=== PATIENT | female | born 1955 | race Caucasian/White ===

== ENCOUNTER 2022-03-01 06:25 | Emergency (ER) | payer OTHER, SELFPAY ==
[2022-03-01] MEDS ORDERED: MORPHINE 4 MG/ML SYR ONE (07:09)
[2022-03-01] MEDS ORDERED: ONDANSETRON 4 MG/2 ML VIAL ONE ×2 (07:10→08:00)
[2022-03-01] MEDS ORDERED: propofoL 200 MG/20 ML VIAL IV ONE (07:48)
--- NOTE | 2022-03-01 08:40 | RAD REPORT ---
EXAM DESCRIPTION: RAD - Wrist Right 2 View - 03/01/2022 7:56 am CLINICAL HISTORY: Right wrist pain status post injury FINDINGS: Markedly displaced comminuted fractures distal radius and ulna with avulsion of the fractu re fragments. Overriding of fracture fragments are present as well as angulation present at the fract ure site. No gross dislocation seen
--- NOTE | 2022-03-01 08:45 | RAD REPORT ---
EXAM DESCRIPTION: RAD - Wrist Right 2 View - 03/01/2022 8:38 am CLINICAL HISTORY: Radial fracture FINDINGS: A splint immobilizes fractures of the distal radius and ulna in much better alignment. No gross dislocation
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
[2022-03-01 09:46] VITALS: TEMP 98.8
[2022-03-01 09:57] VITALS: BP 121/92; O2SAT 99
== END 2022-03-01 09:40 | disposition home or self-care (01) ==
LOC: ER 06:25
PROC: 0PSHXZZ Reposition Right Radius, External Approach (ICD-10-PCS; principal; 2022-03-01)
PROC: 0PSKXZZ Reposition Right Ulna, External Approach (ICD-10-PCS; 2022-03-01)
DX: S52.351A Displaced comminuted fracture of shaft of radius, right arm, initial encounter for closed fracture (principal); S52.251A Displaced comminuted fracture of shaft of ulna, right arm, initial encounter for closed fracture; S62.324A Displaced fracture of shaft of fourth metacarpal bone, right hand, initial encounter for closed fracture; V47.5XXA Car driver injured in collision with fixed or stationary object in traffic accident, initial encounter; Z88.0 Allergy status to penicillin; E11.9 Type 2 diabetes mellitus without complications; I10 Essential (primary) hypertension
CPT/HCPCS: 73100 ×2; 96375; 96374; 99284; 25605; J2704; J2405 ×2

== ENCOUNTER → 2023-12-24 | Emergency (ER) | payer OTHER, SELFPAY ==
--- OUTSIDE RECORDS SUMMARY | 2023-12-24 18:03 | XMS REPORT | Continuity of Care Document ---
Author Name Unknown Address [address] [facility] [address] [place] [address] [facility] thconnect Address [address] [facility] [address] [place] [address] Care Team Providers Care Director Of Corporate Marketing Name Role Phone Shanique Campbell Primary Care Physician [phone] TRACE ZELAYA Attending Clinician Unavailable Doctor Unassigned, [place] Attending Clinician U REYNA Hooper Attending Clinician Unavailable Reyna Macias PA-C Attending Clinician [phone] Unknown, Attending Attending Clinician Unavailab Trace Benton MD Attending Clinician [phone] DESTINY AGUILAR Attending Clinician UnavailKatalina Nieves OT Attending Clinician Unavail able Destiny Aguilar MD Attending Clinician [phone] Joanne Hollingsworth MD Attending Clinician [phone] Only, Adc Test Attending Clinician Unavailable [facility] Attending Clinician Unavailable Phil Friedman MD Attending Clinician [phone] PHIL FRIEDMAN Attending Clinician Unavailable Abbi CANTU, Yaneth Lopez Attending Clinician [phone] VISHNU QIU Attending Clinician Unavailable David DUKES, Stacie Attending Clinician [phone] Kermit RODRIGUEZ, Vishnu Attending Clinician [phone] RAFA DIAZ Attending Clinician Unav ailable Hong RODRIGUEZ, Danial Attending Clinician [phone] DANIAL SIMPSON Attending Clinician Unavailabl e Amadou RODRIGUEZ, Rafa Reyes Attending Clinician + PAXTON DONIS Attending Clinician Unavailable Jewels RODRIGUEZ, Paxton Sommer Attending Clinician [phone] TRACE ZELAYA Admitting Clinician Unavailable Trace Zelaya MD Admitting Clinician [phone] VISHNU QIU Admitting Clinician Unavailable Kermit RODRIGUEZ, Vishnu Admitting Clinician [phone] PAXTON DONIS Admitting Clinician Unavailable Payers Payer Name Policy Type Policy Number Effective Date Expirati on Date Source [facility] [id number] 2022 00:00:00 Problems Condition Name Condition Details Condition Category Status Onset Date Resolution Date Last Treatment Date Treating Clinician Comments Source DKA, type 2, not at goal DKA, type 2, not at goal Disease Active 03-26 00:00: 00 [facility] Obesity (BMI 30-39.9) Obesity (BMI 30-39.9) Disease Active 03-25 00:00: 00 [facility] Hyperglyce guerrero due to diabetes mellitus Hyperglyce guerrero due to diabetes mellitus Disease Active 03-25 00:00: 00 [facility] Closed fracture of distal ends of right radius and ulna, initial encounter Closed fracture of distal ends of right radius and ulna, initial encounter Disease Active 03-20 00:00: 00 Overview: Formattin g of this note might be different from the original. Added automatic ally from request for surgery [id number] [facility] Chest pain Chest pain Disease Active 07-20 00:00: 00 Overview: Formattin g of this note might be different from the original. ICD10 Diagnosis Term Dog Hair Clipper Utility [facility] Allergies, Adverse Reactions, Alerts Allergy Name Allergy Type Status Severity Reaction(s) Onset Date Inactive Date Treating Clinician Comments Source Penicill ins Propensi ty to adverse reaction s Active Rash 07-20 00:00: 00 [facility] PENICILL INS Drug Class Active Rash 07-20 00:00: 00 [facility] Social History Social Habit Start Date Stop Date Quantity Comments [facility] 2023-05-30 00:00:00 2023-05-30 00:00:00 Ex-drinker (finding) [facility] Exposure to SARS-CoV-2 (event) 2022-10-27 00:00:00 2022-11-06 09:52:00 Not sure [facility] Tobacco use and exposure 2022-11-06 00:00:00 2022-11-06 00:00:00 Smokeless tobacco non-user [facility] History of Social function 2022-07-02 00:00:00 2022-07-02 00:00:00 [facility] Sex Ass[birth year] At 1955 00:00:00 1955 00:00:00 [facility] Smoking Status Start Date Stop Date Source Never smoked tobacco [facility] Medications Ordered Medication Name Filled Medication Name Start Date Stop Date Current Medication? Ordering Clinician Indication Dosage Frequency Signature (SIG) Comments Components Source albuterol (PROVENTIL) 2.5 mg /3 mL (0.083 %) nebulizer solution 2.5 mg 05-31 01:00: 00 05-31 00:13 :00 No [id number] 2.5mg [facility] albuterol (PROVENTIL) 2.5 mg /3 mL (0.083 %) nebulizer solution 2.5 mg 05-31 01:00: 00 05-31 00:13 :00 No [id number] 2.5mg 2.5 mg, Inhalation , ONCE, 1 dose, On Fri05/30/23 at 1999, Routine [facility] levothyroxi ne sodium (LEVOTHROID ORAL) 05-30 19:04: 42 Yes Take by mouth. [facility] semaglutide (RYBELSUS ORAL) 05-30 19:04: 42 Yes Take by mouth. [facility] levothyroxi ne sodium (LEVOTHROID ORAL) 05-30 19:04: 42 Yes Take by mouth. [facility] semaglutide (RYBELSUS ORAL) 05-30 19:04: 42 Yes Take by mouth. [facility] predniSONE 20 mg tablet 05-30 00:00: 00 Yes [id number] 20mg Take 1 tablet by mouth in the morning. [facility] cetirizine 10 mg tablet 05-30 00:00: 00 Yes [id number] 10mg Take 1 tablet by mouth in the morning. [facility] fluticasone propionate 50 mcg/actuati on nasal spray 05-30 00:00: 00 Yes [id number] 2{spray } Use 2 Sprays in each nostril in the morning. [facility] bromphenira mine-pseudo ephedrine-D M (BROMFED DM) 2-30-10 mg/5 mL syrup 05-30 00:00: 00 Yes [id number] 5mL Take 5 mL by mouth 3 (three) times daily as needed for Cough or Cold symptoms. [facility] albuterol 90 mcg/actuati on inhaler 05-30 00:00: 00 Yes [id number] 2{puff} Inhale 2 Puffs every 6 (six) hours as needed for Chest tightness or Shortness of Breath. [facility] predniSONE 20 mg tablet 05-30 00:00: 00 Yes [id number] 20mg Take 1 tablet by mouth in the morning. [facility] cetirizine 10 mg tablet 05-30 00:00: 00 Yes [id number] 10mg Take 1 tablet by mouth in the morning. [facility] fluticasone propionate 50 mcg/actuati on nasal spray 05-30 00:00: 00 Yes [id number] 2{spray } Use 2 Sprays in each nostril in the morning. [facility] bromphenira mine-pseudo ephedrine-D M (BROMFED DM) 230-10 mg/5 mL syrup 05-30 00:00: 00 Yes [id number] 5mL Take 5 mL by mouth 3 (three) times daily as needed for Cough or Cold symptoms. [facility] albuterol 90 mcg/actuati on inhaler 05-30 00:00: 00 Yes [id number] 2{puff} Inhale 2 Puffs every 6 (six) hours as needed for Chest tightness or Shortness of Breath. [facility] levothyroxi ne sodium (LEVOTHROID ORAL) 2021-12 10:23: 55 Yes Take by mouth. [facility] semaglutide (RYBELSUS ORAL) 2021-12 10:23: 55 Yes Take by mouth. [facility] levothyroxi ne sodium (LEVOTHROID ORAL) 2021-12 10:23: 55 Yes Take by mouth. [facility] semaglutide (RYBELSUS ORAL) 2021-12 10:23: 55 Yes Take by mouth. [facility] levothyroxi ne sodium (LEVOTHROID ORAL) 2021-12 10:23: 55 Yes Take by mouth. [facility] semaglutide (RYBELSUS ORAL) 2021-12 10:23: 55 Yes Take by mouth. [facility] levothyroxi ne sodium (LEVOTHROID ORAL) 2021-12 10:23: 55 Yes Take by mouth. [facility] semaglutide (RYBELSUS ORAL) 2021-12 10:23: 55 Yes Take by mouth. [facility] levothyroxi ne sodium (LEVOTHROID ORAL) 2021-12 10:23: 55 Yes Take by mouth. [facility] semaglutide (RYBELSUS ORAL) 2021-12 10:23: 55 Yes Take by mouth. [facility] levothyroxi ne sodium (LEVOTHROID ORAL) 2021-12 10:23: 55 Yes Take by mouth. [facility] semaglutide (RYBELSUS ORAL) 2021-12 10:23: 55 Yes Take by mouth. [facility] Nitrofurant oin&Nit. Macrocryst 100 mg capsule 2021-12 00:00: 00 Yes 100mg Take 100 mg by mouth in the morning. [facility] Nitrofurant oin&Nit. Macrocryst 100 mg capsule 2021-12 00:00: 00 Yes 100mg Take 100 mg by mouth in the morning. [facility] Nitrofurant oin&Nit. Macrocryst 100 mg capsule 2021-12 00:00: 00 Yes 100mg Take 100 mg by mouth in the morning. [facility] Nitrofurant oin&Nit. Macrocryst 100 mg capsule 2021-12 00:00: 00 Yes 100mg Take 100 mg by mouth in the morning. [facility] Nitrofurant oin&Nit. Macrocryst 100 mg capsule 2021-12 00:00: 00 Yes 100mg Take 100 mg by mouth in the morning. [facility] Nitrofurant oin&Nit. Macrocryst 100 mg capsule 2021-12 00:00: 00 Yes 100mg Take 1 capsule by mouth in the morning. [facility] Nitrofurant oin&Nit. Macrocryst 100 mg capsule 2021-12 00:00: 00 Yes 100mg Take 1 capsule by mouth in the morning. [facility] levothyroxi ne sodium (LEVOTHROID ORAL) 07-17 13:44: 11 Yes Take by mouth. [facility] empaglifloz in (JARDIANCE) 25 mg Tab 07-17 13:44: 11 Yes Take by mouth. [facility] dapaglifloz in (FARXIGA) 10 mg tablet 07-17 13:44: 11 Yes 10mg Take 10 mg by mouth daily. [facility] levothyroxi ne sodium (LEVOTHROID ORAL) 07-17 13:44: 11 Yes Take by mouth. [facility] empaglifloz in (JARDIANCE) 25 mg Tab 07-17 13:44: 11 Yes Take by mouth. [facility] dapaglifloz in (FARXIGA) 10 mg tablet 07-17 13:44: 11 Yes 10mg Take 10 mg by mouth daily. [facility] levothyroxi ne sodium (LEVOTHROID ORAL) 07-17 13:44: 11 Yes Take by mouth. [facility] empaglifloz in (JARDIANCE) 25 mg Tab 07-17 13:44: 11 Yes Take by mouth. [facility] dapaglifloz in (FARXIGA) 10 mg tablet 07-17 13:44: 11 Yes 10mg Take 10 mg by mouth daily. [facility] levothyroxi ne sodium (LEVOTHROID ORAL) 07-17 13:44: 11 Yes Take by mouth. [facility] empaglifloz in (JARDIANCE) 25 mg Tab 07-17 13:44: 11 Yes Take by mouth. [facility] dapaglifloz in (FARXIGA) 10 mg tablet 07-17 13:44: 11 Yes 10mg Take 10 mg by mouth daily. [facility] levothyroxi ne sodium (LEVOTHROID ORAL) 0 07-17 13:44: 11 Yes Take by mouth. [facility] empaglifloz in (JARDIANCE) 25 mg Tab 07-17 13:44: 11 Yes Take by mouth. [facility] dapaglifloz in (FARXIGA) 10 mg tablet 07-17 13:44: 11 Yes 10mg Take 10 mg by mouth daily. [facility] levothyroxi ne sodium (LEVOTHROID ORAL) 0 07-17 13:44: 11 Yes Take by mouth. [facility] (JARDIANCE) 25 mg Tab 0 07-17 13:44: 11 Yes Take by mouth. [facility] dapaglifloz in (FARXIGA) 10 mg tablet 2021-0 07-17 13:44: 11 Yes 10mg Take 10 mg by mouth daily. [facility] levothyroxi ne sodium (LEVOTHROID ORAL) 0 07-17 13:44: 11 Yes Take by mouth. [facility] empaglifloz in (JARDIANCE) 25 mg Tab 0 07-17 13:44: 11 Yes Take by mouth. [facility] dapaglifloz in (FARXIGA) 10 mg tablet 07-17 13:44: 11 Yes 10mg Take 10 mg by mouth daily. [facility] levothyroxi ne sodium (LEVOTHROID ORAL) 07-17 13:44: 11 Yes Take by mouth. [facility] empaglifloz in (JARDIANCE) 25 mg Tab 07-17 13:44: 11 Yes Take by mouth. [facility] dapaglifloz in (FARXIGA) 10 mg tablet 07-17 13:44: 11 Yes 10mg Take 10 mg by mouth daily. [facility] levothyroxi ne sodium (LEVOTHROID ORAL) 0 07-17 13:44: 11 Yes Take by mouth. [facility] empaglifloz in (JARDIANCE) 25 mg Tab 0 07-17 13:44: 11 Yes Take by mouth. [facility] dapaglifloz in (FARXIGA) 10 mg tablet 07-17 13:44: 11 Yes 10mg Take 10 mg by mouth daily. [facility] levothyroxi ne sodium (LEVOTHROID ORAL) 0 07-17 13:44: 11 Yes Take by mouth. [facility] empaglifloz in (JARDIANCE) 25 mg Tab 07-17 13:44: 11 Yes Take by mouth. [facility] dapaglifloz in (FARXIGA) 10 mg tablet 07-17 13:44: 11 Yes 10mg Take 10 mg by mouth daily. [facility] levothyroxi ne sodium (LEVOTHROID ORAL) 07-17 13:44: 11 Yes Take by mouth. [facility] empaglifloz in (JARDIANCE) 25 mg Tab 07-17 13:44: 11 Yes Take by mouth. [facility] dapaglifloz in (FARXIGA) 10 mg tablet 07-17 13:44: 11 Yes 10mg Take 10 mg by mouth daily. [facility] levothyroxi ne sodium (LEVOTHROID ORAL) 07-17 13:44: 11 Yes Take by mouth. [facility] empaglifloz in (JARDIANCE) 25 mg Tab 07-17 13:44: 11 Yes Take by mouth. [facility] dapaglifloz in (FARXIGA) 10 mg tablet 07-17 13:44: 11 Yes 10mg Take 10 mg by mouth daily. [facility] levothyroxi ne sodium (LEVOTHROID ORAL) 07-17 13:44: 11 Yes Take by mouth. [facility] empaglifloz in (JARDIANCE) 25 mg Tab 07-17 13:44: 11 Yes Take by mouth. [facility] dapaglifloz in (FARXIGA) 10 mg tablet 0 07-17 13:44: 11 Yes 10mg Take 10 mg by mouth daily. [facility] levothyroxi ne sodium (LEVOTHROID ORAL) 07-17 13:44: 11 Yes Take by mouth. [facility] empaglifloz in (JARDIANCE) 25 mg Tab 0 07-17 13:44: 11 Yes Take by mouth. [facility] dapaglifloz in (FARXIGA) 10 mg tablet 2022-0 8-17 13:44: 11 Yes 10mg Take 10 mg by mouth daily. [facility] empaglifloz in (JARDIANCE) 25 mg Tab 2022-0 8-17 13:44: 11 Yes Take by mouth. [facility] dapaglifloz in (FARXIGA) 10 mg tablet 2022-0 8-17 13:44: 11 Yes 10mg Take 10 mg by mouth daily. [facility] empaglifloz in (JARDIANCE) 25 mg Tab 2022-0 8-17 13:44: 11 Yes Take by mouth. [facility] dapaglifloz in (FARXIGA) 10 mg tablet 2022-0 8-17 13:44: 11 Yes 10mg Take 10 mg by mouth daily. [facility] empaglifloz in (JARDIANCE) 25 mg Tab 2022-0 8-17 13:44: 11 Yes Take by mouth. [facility] dapaglifloz in (FARXIGA) 10 mg tablet 2022-0 8-17 13:44: 11 Yes 10mg Take 10 mg by mouth daily. [facility] empaglifloz in (JARDIANCE) 25 mg Tab 2022-0 8-17 13:44: 11 Yes Take by mouth. [facility] dapaglifloz in (FARXIGA) 10 mg tablet 2022-0 8-17 13:44: 11 Yes 10mg Take 10 mg by mouth daily. [facility] empaglifloz in (JARDIANCE) 25 mg Tab 2022-0 8-17 13:44: 11 Yes Take by mouth. [facility] it[facility] dapaglifloz in (FARXIGA) 10 mg tablet 2022-0 8-17 13:44: 11 Yes 10mg Take 10 mg by mouth daily. [facility] empaglifloz in (JARDIANCE) 25 mg Tab 2022-0 8-17 13:44: 11 Yes Take by mouth. [facility] dapaglifloz in (FARXIGA) 10 mg tablet 2022-0 8-17 13:44: 11 Yes 10mg Take 10 mg by mouth daily. [facility] empaglifloz in (JARDIANCE) 25 mg Tab 07-17 13:44: 11 Yes Take by mouth. [facility] dapaglifloz in (FARXIGA) 10 mg tablet 07-17 13:44: 11 Yes 10mg Take 10 mg by mouth daily. [facility] empaglifloz in (JARDIANCE) 25 mg Tab 07-17 13:44: 11 Yes Take by mouth. [facility] dapaglifloz in (FARXIGA) 10 mg tablet 07-17 13:44: 11 Yes 10mg Take 10 mg by mouth daily. [facility] metFORMIN (GLUCOPHAGE ) 1,000 mg tablet 07-02 10:10: 22 Yes 1000mg Take 1,000 mg by mouth 2 (two) times daily with meals. [facility] semaglutide (RYBELSUS ORAL) 07-02 10:10: 22 Yes Take by mouth. [facility] metFORMIN (GLUCOPHAGE ) 1,000 mg tablet 07-02 10:10: 22 Yes 1000mg Take 1,000 mg by mouth 2 (two) times daily with meals. [facility] semaglutide (RYBELSUS ORAL) 07-02 10:10: 22 Yes Take by mouth. [facility] metFORMIN (GLUCOPHAGE ) 1,000 mg tablet 07-02 10:10: 22 Yes 1000mg Take 1,000 mg by mouth 2 (two) times daily with meals. [facility] semaglutide (RYBELSUS ORAL) 07-02 10:10: 22 Yes Take by mouth. [facility] metFORMIN (GLUCOPHAGE ) 1,000 mg tablet 07-02 10:10: 22 Yes 1000mg Take 1,000 mg by mouth 2 (two) times daily with meals. [facility] semaglutide (RYBELSUS ORAL) 07-02 10:10: 22 Yes Take by mouth. [facility] metFORMIN (GLUCOPHAGE ) 1,000 mg tablet 07-02 10:10: 22 Yes 1000mg Take 1,000 mg by mouth 2 (two) times daily with meals. [facility] semaglutide (RYBELSUS ORAL) 07-02 10:10: 22 Yes Take by mouth. [facility] metFORMIN (GLUCOPHAGE ) 1,000 mg tablet 07-02 10:10: 22 Yes 1000mg Take 1,000 mg by mouth 2 (two) times daily with meals. [facility] semaglutide (RYBELSUS ORAL) 07-02 10:10: 22 Yes Take by mouth. [facility] metFORMIN (GLUCOPHAGE ) 1,000 mg tablet 07-02 10:10: 22 Yes 1000mg Take 1,000 mg by mouth 2 (two) times daily with meals. [facility] semaglutide (RYBELSUS ORAL) 07-02 10:10: 22 Yes Take by mouth. [facility] metFORMIN (GLUCOPHAGE ) 1,000 mg tablet 07-02 10:10: 22 Yes 1000mg Take 1,000 mg by mouth 2 (two) times daily with meals. [facility] semaglutide (RYBELSUS ORAL) 07-02 10:10: 22 Yes Take by mouth. [facility] metFORMIN (GLUCOPHAGE ) 1,000 mg tablet 07-02 10:10: 22 Yes 1000mg Take 1,000 mg by mouth 2 (two) times daily with meals. [facility] semaglutide (RYBELSUS ORAL) 07-02 10:10: 22 Yes Take by mouth. [facility] metFORMIN (GLUCOPHAGE ) 1,000 mg tablet 07-02 10:10: 22 Yes 1000mg Take 1,000 mg by mouth 2 (two) times daily with meals. [facility] semaglutide (RYBELSUS ORAL) 07-02 10:10: 22 Yes Take by mouth. [facility] metFORMIN (GLUCOPHAGE ) 1,000 mg tablet 07-02 10:10: 22 Yes 1000mg Take 1,000 mg by mouth 2 (two) times daily with meals. [facility] semaglutide (RYBELSUS ORAL) 07-02 10:10: 22 Yes Take by mouth. [facility] metFORMIN (GLUCOPHAGE ) 1,000 mg tablet 07-02 10:10: 22 Yes 1000mg Take 1,000 mg by mouth 2 (two) times daily with meals. [facility] semaglutide (RYBELSUS ORAL) 07-02 10:10: 22 Yes Take by mouth. [facility] metFORMIN (GLUCOPHAGE ) 1,000 mg tablet 0 07-02 10:10: 22 Yes 1000mg Take 1,000 mg by mouth 2 (two) times daily with meals. [facility] semaglutide (RYBELSUS ORAL) 07-02 10:10: 22 Yes Take by mouth. [facility] metFORMIN (GLUCOPHAGE ) 1,000 mg tablet 07-02 10:10: 22 Yes 1000mg Take 1,000 mg by mouth 2 (two) times daily with meals. [facility] semaglutide (RYBELSUS ORAL) 07-02 10:10: 22 Yes Take by mouth. [facility] metFORMIN (GLUCOPHAGE ) 1,000 mg tablet 07-02 10:10: 22 Yes 1000mg Take 1,000 mg by mouth 2 (two) times daily with meals. [facility] metFORMIN (GLUCOPHAGE ) 1,000 mg tablet 2021-0 07-02 10:10: 22 Yes 1000mg Take 1,000 mg by mouth 2 (two) times daily with meals. [facility] metFORMIN (GLUCOPHAGE ) 1,000 mg tablet 2021-0 07-02 10:10: 22 Yes 1000mg Take 1,000 mg by mouth 2 (two) times daily with meals. [facility] metFORMIN (GLUCOPHAGE ) 1,000 mg tablet 2021-0 07-02 10:10: 22 Yes 1000mg Take 1,000 mg by mouth 2 (two) times daily with meals. [facility] metFORMIN (GLUCOPHAGE ) 1,000 mg tablet 2021-0 07-02 10:10: 22 Yes 1000mg Take 1,000 mg by mouth 2 (two) times daily with meals. [facility] metFORMIN (GLUCOPHAGE ) 1,000 mg tablet 0 07-02 10:10: 22 Yes 1000mg Take 1,000 mg by mouth 2 (two) times daily with meals. [facility] metFORMIN (GLUCOPHAGE ) 1,000 mg tablet 2021-0 07-02 10:10: 22 Yes 1000mg Take 1,000 mg by mouth 2 (two) times daily with meals. [facility] metFORMIN (GLUCOPHAGE ) 1,000 mg tablet 2021-0 07-02 10:10: 22 Yes 1000mg Take 1,000 mg by mouth 2 (two) times daily with meals. [facility] metFORMIN (GLUCOPHAGE ) 1,000 mg tablet 2021-0 07-02 10:10: 22 Yes 1000mg Take 1,000 mg by mouth 2 (two) times daily with meals. [facility] ibuprofen 800 mg tablet 0 07-02 00:00: 00 Yes [id number] 800mg Take 1 tablet by mouth every 6 (six) hours as needed for Pain (scale 1-3) or Pain (scale 4-6). [facility] acetaminoph en (TYLENOL EXTRA STRENGTH) 500 mg tablet 07-02 00:00: 00 Yes [id number] 500mg Take 1 tablet by mouth every 6 (six) hours as needed for Pain. [facility] ibuprofen 800 mg tablet 2021-0 07-02 00:00: 00 Yes [id number] 800mg Take 1 tablet by mouth every 6 (six) hours as needed for Pain (scale 1-3) or Pain (scale 4-6). [facility] acetaminoph en (TYLENOL EXTRA STRENGTH) 500 mg tablet 2021-0 07-02 00:00: 00 Yes [id number] 500mg Take 1 tablet by mouth every 6 (six) hours as needed for Pain. [facility] ibuprofen 800 mg tablet 2021-0 8- 00:00: 00 Yes [id number] 800mg Take 1 tablet by mouth every 6 (six) hours as needed for Pain (scale 1-3) or Pain (scale 4-6). [facility] acetaminoph en (TYLENOL EXTRA STRENGTH) 500 mg tablet 2021-0 8- 00:00: 00 Yes [id number] 500mg Take 1 tablet by mouth every 6 (six) hours as needed for Pain. [facility] ibuprofen 800 mg tablet 2021-0 8- 00:00: 00 Yes [id number] 800mg Take 1 tablet by mouth every 6 (six) hours as needed for Pain (scale 1-3) or Pain (scale 4-6). [facility] acetaminoph en (TYLENOL EXTRA STRENGTH) 500 mg tablet 2021-0 8- 00:00: 00 Yes [id number] 500mg Take 1 tablet by mouth every 6 (six) hours as needed for Pain. [facility] ibuprofen 800 mg tablet 2021-0 8- 00:00: 00 Yes [id number] 800mg Take 1 tablet by mouth every 6 (six) hours as needed for Pain (scale 1-3) or Pain (scale 4-6). [facility] acetaminoph en (TYLENOL EXTRA STRENGTH) 500 mg tablet 0 8- 00:00: 00 Yes [id number] 500mg Take 1 tablet by mouth every 6 (six) hours as needed for Pain. [facility] ibuprofen 800 mg tablet 2021-0 8- 00:00: 00 Yes [id number] 800mg Take 1 tablet by mouth every 6 (six) hours as needed for Pain (scale 1-3) or Pain (scale 4-6). [facility] acetaminoph en (TYLENOL EXTRA STRENGTH) 500 mg tablet 2021-0 8-02 00:00: 00 Yes [id number] 500mg Take 1 tablet by mouth every 6 (six) hours as needed for Pain. [facility] ibuprofen 800 mg tablet 2021-0 8-02 00:00: 00 Yes [id number] 800mg Take 1 tablet by mouth every 6 (six) hours as needed for Pain (scale 1-3) or Pain (scale 4-6). [facility] acetaminoph en (TYLENOL EXTRA STRENGTH) 500 mg tablet 2021-0 8-02 00:00: 00 Yes [id number] 500mg Take 1 tablet by mouth every 6 (six) hours as needed for Pain. [facility] ibuprofen 800 mg tablet 0 07-02 00:00: 00 Yes [id number] 800mg Take 1 tablet by mouth every 6 (six) hours as needed for Pain (scale 1-3) or Pain (scale 4-6). [facility] acetaminoph en (TYLENOL EXTRA STRENGTH) 500 mg tablet 0 07-02 00:00: 00 Yes [id number] 500mg Take 1 tablet by mouth every 6 (six) hours as needed for Pain. [facility] ibuprofen 800 mg tablet 0 07-02 00:00: 00 Yes [id number] 800mg Take 1 tablet by mouth every 6 (six) hours as needed for Pain (scale 1-3) or Pain (scale 4-6). [facility] acetaminoph en (TYLENOL EXTRA STRENGTH) 500 mg tablet 07-02 00:00: 00 Yes [id number] 500mg Take 1 tablet by mouth every 6 (six) hours as needed for Pain. [facility] ibuprofen 800 mg tablet 07-02 00:00: 00 Yes [id number] 800mg Take 1 tablet by mouth every 6 (six) hours as needed for Pain (scale 1-3) or Pain (scale 4-6). [facility] acetaminoph en (TYLENOL EXTRA STRENGTH) 500 mg tablet 0 07-02 00:00: 00 Yes [id number] 500mg Take 1 tablet by mouth every 6 (six) hours as needed for Pain. [facility] ibuprofen 800 mg tablet 0 07-02 00:00: 00 Yes [id number] 800mg Take 1 tablet by mouth every 6 (six) hours as needed for Pain (scale 1-3) or Pain (scale 4-6). [facility] acetaminoph en (TYLENOL EXTRA STRENGTH) 500 mg tablet 0 07-02 00:00: 00 Yes [id number] 500mg Take 1 tablet by mouth every 6 (six) hours as needed for Pain. [facility] ibuprofen 800 mg tablet 2021-0 8 00:00: 00 Yes [id number] 800mg Take 1 tablet by mouth every 6 (six) hours as needed for Pain (scale 1-3) or Pain (scale 4-6). [facility] acetaminoph en (TYLENOL EXTRA STRENGTH) 500 mg tablet 2021-0 8-02 00:00: 00 Yes [id number] 500mg Take 1 tablet by mouth every 6 (six) hours as needed for Pain. [facility] ibuprofen 800 mg tablet 2-0 8-02 00:00: 00 Yes [id number] 800mg Take 1 tablet by mouth every 6 (six) hours as needed for Pain (scale 1-3) or Pain (scale 4-6). [facility] acetaminoph en (TYLENOL EXTRA STRENGTH) 500 mg tablet 2021-0 8- 00:00: 00 Yes [id number] 500mg Take 1 tablet by mouth every 6 (six) hours as needed for Pain. [facility] ibuprofen 800 mg tablet 2021-0 8- 00:00: 00 Yes [id number] 800mg Take 1 tablet by mouth every 6 (six) hours as needed for Pain (scale 1-3) or Pain (scale 4-6). [facility] acetaminoph en (TYLENOL EXTRA STRENGTH) 500 mg tablet 2021-0 8-02 00:00: 00 Yes [id number] 500mg Take 1 tablet by mouth every 6 (six) hours as needed for Pain. [facility] ibuprofen 800 mg tablet 2021-0 8- 00:00: 00 Yes [id number] 800mg Take 1 tablet by mouth every 6 (six) hours as needed for Pain (scale 1-3) or Pain (scale 4-6). [facility] acetaminoph en (TYLENOL EXTRA STRENGTH) 500 mg tablet 2-0 8-02 00:00: 00 Yes [id number] 500mg Take 1 tablet by mouth every 6 (six) hours as needed for Pain. [facility] ibuprofen 800 mg tablet 2-0 8-02 00:00: 00 Yes [id number] 800mg Take 1 tablet by mouth every 6 (six) hours as needed for Pain (scale 1-3) or Pain (scale 4-6). [facility] acetaminoph en (TYLENOL EXTRA STRENGTH) 500 mg tablet 2-0 8- 00:00: 00 Yes [id number] 500mg Take 1 tablet by mouth every 6 (six) hours as needed for Pain. [facility] ibuprofen 800 mg tablet 2021-0 8- 00:00: 00 Yes [id number] 800mg Take 1 tablet by mouth every 6 (six) hours as needed for Pain (scale 1-3) or Pain (scale 4-6). [facility] acetaminoph en (TYLENOL EXTRA STRENGTH) 500 mg tablet 2021-0 8- 00:00: 00 Yes [id number] 500mg Take 1 tablet by mouth every 6 (six) hours as needed for Pain. [facility] ibuprofen 800 mg tablet 2021-0 8- 00:00: 00 Yes [id number] 800mg Take 1 tablet by mouth every 6 (six) hours as needed for Pain (scale 1-3) or Pain (scale 4-6). [facility] acetaminoph en (TYLENOL EXTRA STRENGTH) 500 mg tablet 2021-0 8- 00:00: 00 Yes [id number] 500mg Take 1 tablet by mouth every 6 (six) hours as needed for Pain. [facility] ibuprofen 800 mg tablet 2021-0 8- 00:00: 00 Yes [id number] 800mg Take 1 tablet by mouth every 6 (six) hours as needed for Pain (scale 1-3) or Pain (scale 4-6). [facility] acetaminoph en (TYLENOL EXTRA STRENGTH) 500 mg tablet 2021-0 8- 00:00: 00 Yes [id number] 500mg Take 1 tablet by mouth every 6 (six) hours as needed for Pain. [facility] ibuprofen 800 mg tablet 2-0 8-02 00:00: 00 Yes [id number] 800mg Take 1 tablet by mouth every 6 (six) hours as needed for Pain (scale 1-3) or Pain (scale 4-6). [facility] acetaminoph en (TYLENOL EXTRA STRENGTH) 500 mg tablet 2-0 8-02 00:00: 00 Yes [id number] 500mg Take 1 tablet by mouth every 6 (six) hours as needed for Pain. [facility] ibuprofen 800 mg tablet 07-02 00:00: 00 Yes [id number] 800mg Take 1 tablet by mouth every 6 (six) hours as needed for Pain (scale 1-3) or Pain (scale 4-6). [facility] acetaminoph en (TYLENOL EXTRA STRENGTH) 500 mg tablet 07-02 00:00: 00 Yes [id number] 500mg Take 1 tablet by mouth every 6 (six) hours as needed for Pain. [facility] ibuprofen 800 mg tablet 07-02 00:00: 00 Yes [id number] 800mg Take 1 tablet by mouth every 6 (six) hours as needed for Pain (scale 1-3) or Pain (scale 4-6). [facility] acetaminoph en (TYLENOL EXTRA STRENGTH) 500 mg tablet 07-02 00:00: 00 Yes [id number] 500mg Take 1 tablet by mouth every 6 (six) hours as needed for Pain. [facility] levothyroxi ne 25 mcg tablet 05-25 00:00: 00 Yes 25ug Take 25 mcg by mouth. [facility] carvediloL 12.5 mg tablet 05-25 00:00: 00 Yes daily. [facility] levothyroxi ne 25 mcg tablet 05-25 00:00: 00 Yes 25ug Take 25 mcg by mouth. [facility] carvediloL 12.5 mg tablet 05-25 00:00: 00 Yes daily. [facility] levothyroxi ne 25 mcg tablet 05-25 00:00: 00 Yes 25ug Take 25 mcg by mouth. [facility] carvediloL 12.5 mg tablet 05-25 00:00: 00 Yes daily. [facility] levothyroxi ne 25 mcg tablet 05-25 00:00: 00 Yes 25ug Take 25 mcg by mouth. [facility] carvediloL 12.5 mg tablet 05-25 00:00: 00 Yes daily. [facility] levothyroxi ne 25 mcg tablet 05-25 00:00: 00 Yes 25ug Take 25 mcg by mouth. [facility] carvediloL 12.5 mg tablet 0 05-25 00:00: 00 Yes daily. [facility] levothyroxi ne 25 mcg tablet 0 05-25 00:00: 00 Yes 25ug Take 25 mcg by mouth. [facility] carvediloL 12.5 mg tablet 0 05-25 00:00: 00 Yes daily. [facility] levothyroxi ne 25 mcg tablet 0 05-25 00:00: 00 Yes 25ug Take 25 mcg by mouth. [facility] carvediloL 12.5 mg tablet 05-25 00:00: 00 Yes daily. [facility] levothyroxi ne 25 mcg tablet 0 05-25 00:00: 00 Yes 25ug Take 25 mcg by mouth. [facility] carvediloL 12.5 mg tablet 05-25 00:00: 00 Yes daily. [facility] levothyroxi ne 25 mcg tablet 0 05-25 00:00: 00 Yes 25ug Take 25 mcg by mouth. [facility] carvediloL 12.5 mg tablet 05-25 00:00: 00 Yes daily. [facility] levothyroxi ne 25 mcg tablet 05-25 00:00: 00 Yes 25ug Take 25 mcg by mouth. [facility] carvediloL 12.5 mg tablet 0 05-25 00:00: 00 Yes daily. [facility] levothyroxi ne 25 mcg tablet 0 05-25 00:00: 00 Yes 25ug Take 25 mcg by mouth. [facility] carvediloL 12.5 mg tablet 0 05-25 00:00: 00 Yes daily. [facility] levothyroxi ne 25 mcg tablet 0 05-25 00:00: 00 Yes 25ug Take 25 mcg by mouth. [facility] carvediloL 12.5 mg tablet 0 05-25 00:00: 00 Yes daily. [facility] levothyroxi ne 25 mcg tablet 2021-0 05-25 00:00: 00 Yes 25ug Take 25 mcg by mouth. [facility] carvediloL 12.5 mg tablet 0 05-25 00:00: 00 Yes daily. [facility] levothyroxi ne 25 mcg tablet 0 05-25 00:00: 00 Yes 25ug Take 25 mcg by mouth. [facility] carvediloL 12.5 mg tablet 0 05-25 00:00: 00 Yes daily. [facility] levothyroxi ne 25 mcg tablet 0 05-25 00:00: 00 Yes 25ug Take 25 mcg by mouth. [facility] carvediloL 12.5 mg tablet 0 05-25 00:00: 00 Yes daily. [facility] levothyroxi ne 25 mcg tablet 0 05-25 00:00: 00 Yes 25ug Take 25 mcg by mouth. [facility] carvediloL 12.5 mg tablet 0 05-25 00:00: 00 Yes daily. [facility] levothyroxi ne 25 mcg tablet 0 05-25 00:00: 00 Yes 25ug Take 25 mcg by mouth. [facility] carvediloL 12.5 mg tablet 0 05-25 00:00: 00 Yes daily. [facility] levothyroxi ne 25 mcg tablet 0 05-25 00:00: 00 Yes 25ug Take 25 mcg by mouth. [facility] carvediloL 12.5 mg tablet 0 05-25 00:00: 00 Yes daily. [facility] levothyroxi ne 25 mcg tablet 0 05-25 00:00: 00 Yes 25ug Take 25 mcg by mouth. [facility] carvediloL 12.5 mg tablet 2021-0 05-25 00:00: 00 Yes daily. [facility] levothyroxi ne 25 mcg tablet 05-25 00:00: 00 Yes 25ug Take 25 mcg by mouth. [facility] carvediloL 12.5 mg tablet 05-25 00:00: 00 Yes daily. [facility] levothyroxi ne 25 mcg tablet 05-25 00:00: 00 Yes 25ug Take 25 mcg by mouth. [facility] carvediloL 12.5 mg tablet 05-25 00:00: 00 Yes daily. [facility] levothyroxi ne 25 mcg tablet 05-25 00:00: 00 Yes 25ug Take 25 mcg by mouth. [facility] carvediloL 12.5 mg tablet 05-25 00:00: 00 Yes daily. [facility] NIFEdipine ER 60 mg tablet 05-10 00:00: 00 Yes 60mg Take 60 mg by mouth daily. [facility] NIFEdipine ER 60 mg tablet 05-10 00:00: 00 Yes 60mg Take 60 mg by mouth daily. [facility] NIFEdipine ER 60 mg tablet 05-10 00:00: 00 Yes 60mg Take 60 mg by mouth daily. [facility] NIFEdipine ER 60 mg tablet 05-10 00:00: 00 Yes 60mg Take 60 mg by mouth daily. [facility] NIFEdipine ER 60 mg tablet 05-10 00:00: 00 Yes 60mg Take 60 mg by mouth daily. [facility] NIFEdipine ER 60 mg tablet 05-10 00:00: 00 Yes 60mg Take 60 mg by mouth daily. [facility] NIFEdipine ER 60 mg tablet 05-10 00:00: 00 Yes 60mg Take 60 mg by mouth daily. [facility] NIFEdipine ER 60 mg tablet 05-10 00:00: 00 Yes 60mg Take 60 mg by mouth daily. [facility] NIFEdipine ER 60 mg tablet 05-10 00:00: 00 Yes 60mg Take 60 mg by mouth daily. [facility] NIFEdipine ER 60 mg tablet 0 05-10 00:00: 00 Yes 60mg Take 60 mg by mouth daily. [facility] NIFEdipine ER 60 mg tablet 05-10 00:00: 00 Yes 60mg Take 60 mg by mouth daily. [facility] NIFEdipine ER 60 mg tablet 05-10 00:00: 00 Yes 60mg Take 60 mg by mouth daily. [facility] NIFEdipine ER 60 mg tablet 05-10 00:00: 00 Yes 60mg Take 60 mg by mouth daily. [facility] NIFEdipine ER 60 mg tablet 05-10 00:00: 00 Yes 60mg Take 60 mg by mouth daily. [facility] NIFEdipine ER 60 mg tablet 05-10 00:00: 00 Yes 60mg Take 60 mg by mouth daily. [facility] NIFEdipine ER 60 mg tablet 05-10 00:00: 00 Yes 60mg Take 60 mg by mouth daily. [facility] NIFEdipine ER 60 mg tablet 05-10 00:00: 00 Yes 60mg Take 60 mg by mouth daily. [facility] NIFEdipine ER 60 mg tablet 0 05-10 00:00: 00 Yes 60mg Take 60 mg by mouth daily. [facility] NIFEdipine ER 60 mg tablet 05-10 00:00: 00 Yes 60mg Take 60 mg by mouth daily. [facility] NIFEdipine ER 60 mg tablet 05-10 00:00: 00 Yes 60mg Take 60 mg by mouth daily. [facility] NIFEdipine ER 60 mg tablet 0 05-10 00:00: 00 Yes 60mg Take 1 tablet by mouth in the morning. [facility] NIFEdipine ER 60 mg tablet 05-10 00:00: 00 Yes 60mg Take 1 tablet by mouth in the morning. [facility] Vital Signs Vital Name Observation Time Observation Value Comments S wanda Systolic blood pressure 2023-05-31 00:03:00 135 mm[Hg] [facility] Diastolic blood pressure 2023-05-31 00:03:00 75 mm[Hg] [facility] Heart rate 2023-05-31 00:03:00 74 /min [facility] Body temperature 2023-05-31 00:03:00 37 Mecca [facility] Respiratory rate 2023-05-31 00:03:00 18 /min [facility] Body height 2023-05-31 00:03:00 162.6 cm [facility] Body weight 2023-05-31 00:03:00 95.482 kg [facility] BMI 2023-05-31 00:03:00 36.13 kg/m2 [facility] Oxygen saturation in Arterial blood by Pulse oximetry 2023-05-31 00:03:00 98 /min [facility] Systolic blood pressure 2022-11-06 16:25:00 100 mm[Hg] [facility] Diastolic blood pressure 2022-11-06 16:25:00 58 mm[Hg] [facility] Heart rate 2022-11-06 16:25:00 54 /min [facility] Body temperature 2022-11-06 16:25:00 36.61 [place] [facility] Body height 2022-11-06 16:25:00 165.1 cm [facility] Body weight 2022-11-06 16:25:00 91.853 kg [facility] BMI 2022-11-06 16:25:00 33.70 kg/m2 [facility] Systolic blood pressure 2022-09-25 15:00:00 156 [facility]Hg[facility] 2022-09-25 15:00:00 82 mm[Hg] just took [facility] Heart rate 2022-09-25 14:54:00 57 /min [facility] Body temperature 2022-09-25 14:54:00 36.78 [place] [facility] Body height 2022-09-25 14:54:00 165.1 cm [facility] Body weight 2022-09-25 14:54:00 91.354 kg [facility] BMI 2022-09-25 14:54:00 33.51 kg/m2 [facility] Oxygen saturation in Arterial blood by Pulse oximetry 2022-09-25 14:54:00 98 /min [facility] Systolic blood pressure 2022-08-14 13:49:00 138 mm[Hg] [facility] Diastolic blood pressure 2022-08-14 13:49:00 84 mm[Hg] [facility] Heart rate 2022-08-14 13:49:00 59 /min [facility] Body temperature 2022-08-14 13:49:00 36.5 [place] [facility] Respiratory rate 2022-08-14 13:49:00 16 /min [facility] Body height 2022-08-14 13:49:00 165.1 cm [facility] Body weight 2022-08-14 13:49:00 89.177 kg [facility] BMI 2022-08-14 13:49:00 32.72 kg/m2 [facility] Oxygen saturation in Arterial blood by Pulse oximetry 2022-08-14 13:49:00 100 /min [facility] Procedures Procedure Date / Time Performed Performing Clinician Source AUTHORIZATION FOR RELEASE OF PHI 2023-11-06 06:01:00 Doctor Unassigned, [place] [facility] ASSIGNMENT OF BENEFITS 2023-05-30 23:54:46 Docto r Unassigned, [place] [facility] WORKERS COMPENSATION 2022-09-25 05:01:00 Doctor Unassigned, [place] [facility] WORKERS COMPENSATION 2022-08-14 05:01:00 Doctor Unassigned, [place] [facility] Encounters Start Date/Time End Date/Time Encounter Type Admission Type Attending [facility] Care Facility Care Department Encounter ID Source 2022-05-22 12:24:54 Outpatient TRACE ZELAYA [facility] [id number] [facility] 2022-03-21 13:10:24 Outpatient TRACE DENNIS [facility] [id number] [facility] 2022-03-21 09:34:32 Outpatient TRACE DENNIS [facility] [id number] [facility] 2022-03-20 14:29:03 Outpatient TRACE DENNIS [facility] [id number] [facility] 2023-11-06 00:00:00 2023-11-06 00:00:00 Orders Only Doctor Unassigned, [place] [facility] 1.2840.114 350.1.13.10 4.2.7.2.686 [id number] [facility] 2023-05-30 18:40:00 2023-05-30 19:28:26 Outpatient R REYNA MACIAS [facility] [id number] [facility] 2023-05-30 18:40:00 2023-05-30 19:00:00 Urgent Care Reyna Macias Unknown, Attending [facility] 1.2840.114 350.1.13.10 4.2.7.2.686 [id number] [facility] 2023-05-30 00:00:00 2023-05-30 00:00:00 Orders Only Doctor Unassigned, [place] [facility] 1.2840.114 350.1.13.10 4.2.7.2.686 [id number] [facility] 2023-01-01 00:00:00 2023-01-01 00:00:00 Telephone Trace Zelaya [facility] 1..840.114 350.1.13.10 4.2.7.2.686 [id number] [facility] 2022-11-06 10:30:00 2022-11-06 10:44:[address] [facility] [id number] [facility] 2022-11-06 10:30:00 2022-11-06 10:44:08 Office Visit Trace Zelaya [facility] 1.284.114 350.1.13.10 4.2.7.2.686 [id number] [facility] 2022-10-10 00:00:00 2022-10-10 00:00:00 Telephone Trace Zelaya [facility] 1.2.840.114 350.1.13.10 4.2.7.2.686 [id number] [facility] 2022-10-02 00:00:00 2022-10-02 00:00:00 Telephone Trace Zelaya [facility] [place] [facility] 1.2.840.114 350.1.13.10 4.2.7.2.686 [id number] [facility] 2022-09-25 10:30:00 2022-09-25 10:30:00 Office Visit Trace Zelaya [facility] [place] [facility] 1.2.840.114 350.1.13.10 4.2.7.2.686 [id number] [facility] 2022-09-25 10:30:00 2022-09-25 10:16:21 Outpatient R TRACE ZELAYA [facility] [id number] [facility] 2022-09-25 00:00:00 2022-09-25 00:00:00 Orders Only Doctor Unassigned, [place] [facility] 1.2.840.114 350.1.13.10 4.2.7.2.686 [id number] [facility] 2022-08-23 00:00:00 2022-08-23 00:00:00 Telephone Trace Zelaya [facility] [place] [facility] 1.2.840.114 350.1.13.10 4.2.7.2.686 [id number] [facility] 2022-08-23 00:00:00 2022-08-23 00:00:00 [facility] [place] [facility] 1.2.840.114 350.1.13.10 4.2.7.2.686 [id number] [facility] 2022-08-16 00:00:00 2022-08-16 00:00:00 Telephone Trace Zelaya [facility] [place] [facility] 1..840.114 350.1.13.10 4.2.7.2.686 [id number] [facility] 2022-08-14 09:00:00 2022-08-14 09:28:[address] [facility] [id number] [facility] 2022-08-14 09:00:00 2022-08-14 09:28:24 [facility] [place] [facility] 1..840.114 350.1.13.10 4.2.7.2.686 [id number] [facility] 2022-08-14 00:00:00 2022-08-14 00:00:00 Orders Only Doctor Unassigned, [place] [facility] .840.114 350.1.13.10 4.2.7.2.686 [id number] [facility] 2022-08-01 09:30:00 2022-08-01 09:30:[address] [facility] [id number] [facility] 2022-07-31 00:00:00 2022-07-31 00:00:00 [facility] [place] [facility] ..840.114 350.1.13.10 4.2.7.2.686 [id number] [facility] 2022-07-30 13:45:00 2022-07-30 13:45:[address] [facility] [id number] [facility] 2022-07-26 00:00:00 2022-07-26 00:00:00 [facility] [place] [facility] ..840.114 350.1.13.10 4.2.7.2.686 [id number] [facility] 2022-07-25 09:30:00 2022-07-25 11:57:14 Ancillary Visit Katalina Walker Craig L [facility] 1..840.114 350.1.13.10 4.2.7.2.686 [id number] [facility] 2022-07-25 09:30:00 2022-07-25 09:30:[address] [facility] [id number] [facility] 2022-07-17 13:23:14 2022-07-17 23:59:[address] [facility] [id number] [facility] 2022-07-17 13:23:14 2022-07-17 23:59:00 Hospital Encounter Trace Zelaya [facility] [place] [facility] 1..840.114 350.1.13.10 4.2.7.2.686 [id number] [facility] 2022-07-17 13:23:14 2022-07-17 23:59:[address] [facility] [id number] [facility] 2022-07-17 13:30:00 2022-07-17 14:05:[address] [facility] [id number] [facility] 2022-07-17 13:30:00 2022-07-17 14:05:52 [facility] [place] [facility] 1..840.114 350.1.13.10 4.2.7.2.686 [id number] [facility] 2022-07-17 13:30:00 2022-07-17 14:05:[address] [facility] [id number] [facility] 2022-07-15 00:00:00 2022-07-15 00:00:[address] [facility] 1..114 350.1.13.10 4.2.7.2.686 [id number] [facility] 2022-07-02 08:25:00 2022-07-02 10:17:00 Surgery Trace Zelaya [facility] 1..114 350.1.13.10 4.2.7.2.686 [id number] [facility] 2022-07-02 07:13:00 2022-07-02 10:10:00 Outpatient R TRACE ZELAYA [facility] [id number] [facility] 2022-07-02 07:13:00 2022-07-02 10:10:00 Hospital Encounter Trace Zelaya [facility] 1.114 350.1.13.10 4.2.7.2.686 [id number] [facility] 2022-07-02 00:00:00 2022-07-02 00:00:00 Orders Only Doctor Unassigned, [place] [facility] 1..114 350.1.13.10 4.2.7.2.686 [id number] [facility] 2022-06-27 11:00:00 2022-06-27 11:54:[address] [facility] [id number] [facility] 2022-06-27 11:00:00 2022-06-27 11:54:13 Ancillary Visit Katalina Walker Craig L [facility] 1..114 350.1.13.10 4.2.7.2.686 [id number] [facility] 2022-06-27 11:00:00 2022-06-27 11:00:00 Outpatient Kinza DESTINY AGUILAR [facility] [id number] [facility] 2022-06-26 11:00:00 2022-06-26 11:00:00 Outpatient Kinza DESTINY AGUILAR [facility] [id number] [facility] 2022-06-11 00:00:00 2022-06-11 00:00:00 Telephone Trace Zelaya [facility] 1.2840.114 350.1.13.10 4.2.7.2.686 [id number] [facility] 2022-06-10 11:00:00 2022-06-10 11:15:00 Laboratory Only Only, Adc Test RaghavTrace huerta [facility] 1.2.840.114 350.1.13.10 4.2.7.2.686 [id number] [facility] 2022-06-10 11:00:00 2022-06-10 11:00:00 Outpatient R TRACE ZELAYA [facility] [id number] [facility] 2022-06-05 11:00:00 2022-06-05 13:02:24 Ancillary Visit Katalina Walker Craig [facility] 1.2.840.114 350.1.13.10 4.2.7.2.686 [id number] [facility] 2022-05-28 11:00:00 2022-05-28 11:55:11 Outpatient R DESTINY AGUIL[address] [facility] [id number] [facility] 2022-05-28 11:00:00 2022-05-28 11:55:11 [facility] 1.[facility].840.114 350.1.13.10 4.2.7.2.686 [id number] [facility] 2022-05-28 11:00:00 2022-05-28 11:55:11 Outpatient R AGUILARGARCIA M[address]ILL[address] [facility] [id number] [facility] 2022-05-28 11:00:00 2022-05-28 11:00:00 Outpatient R AGUILAR [facility] [id number] [facility] 2022-05-23 11:00:00 2022-05-23 13:07:26 Ancillary Visit AaronKatalina Destiny Siddiqi [facility] 1.2.840.114 350.1.13.10 4.2.7.2.686 [id number] [facility] 2022-05-23 11:00:00 2022-05-23 13:07:26 Outpatient Kinza AGUILAR [facility] [id number] [facility] 2022-05-16 11:00:00 2022-05-16 13:25:44 Ancillary Visit Aaron Katalinaamber Aguilar Destiny Huizar [facility] 1.2.840.114 350.1.13.10 4.2.7.2.686 [id number] [facility] 2022-05-13 14:00:00 2022-05-13 14:58:50 Office Visit Trace Zelaya [facility] 1.2.840.114 350.1.13.10 4.2.7.2.686 [id number] [facility] 2022-05-13 14:00:00 2022-05-13 14:58:[address] [facility] [id number] [facility] 2022-05-13 14:00:00 2022-05-13 14:58:[address] [facility] [id number] [facility] 2022-05-13 14:00:00 2022-05-13 14:00:[address] [facility] [id number] [facility] 2022-05-09 13:00:00 2022-05-09 13:45:00 Ancillary Visit Katalina Walker Craig L [facility] 1.2.840.114 350.1.13.10 4.2.7.2.686 [id number] [facility] 2022-05-09 13:00:00 2022-05-09 13:00:00 Outpatient R DESTINY [facility] [id number] [facility] 2022-05-06 00:00:00 2022-05-06 00:00:00 Telephone Rick Zelayael [facility] 1..840.114 350.1.13.10 4.2.7.2.686 [id number] [facility] 2022-05-02 13:45:00 2022-05-02 14:30:00 Ancillary Visit Katalina Walker Craig L [facility] 1..840.114 350.1.13.10 4.2.7.2.686 [id number] [facility] 2022-05-02 13:45:00 2022-05-02 13:45:00 Outpatient R DESTINY [facility] [facility] [id number] [facility] 2022-05-02 13:45:00 2022-05-02 13:45:00 Outpatient R DESTINY [facility] [id number] [facility] 2022-04-25 11:00:00 2022-04-25 13:16:40 Outpatient R DESTINY [facility] [facility] [id number] [facility] 2022-04-25 11:00:00 2022-04-25 13:16:40 Ancillary Visit Katalina Walker Craig [facility] 1.2.840.114 350.1.13.10 4.2.7.2.686 [id number] [facility] 2022-04-25 11:00:00 2022-04-25 13:16:40 Outpatient Kinza DESTINY AGUILAR [facility] [id number] [facility] 2022-04-18 11:00:00 2022-04-18 11:45:00 Ancillary Visit Katalina Walker Craig L [facility] 1..840.114 350.1.13.10 4.2.7.2.686 [id number] [facility] 2022-04-18 11:00:00 2022-04-18 11:00:00 Outpatient Kinza DESTINY AGUILAR [facility] [id number] [facility] 2022-04-18 11:00:00 2022-04-18 11:00:00 Outpatient R DESTINY [facility] [id number] [facility] 2022-04-18 11:00:00 2022-04-18 11:00:[address] [facility] [id number] [facility] 2022-04-10 00:00:00 2022-04-10 00:00:00 Telephone Trace Zelaya [facility] 1..840.114 350.1.13.10 4.2.7.2.686 [id number] [facility] 2022-04-09 11:00:00 2022-04-09 11:45:00 Ancillary Visit Katalina Walker Craig L [facility] 1..840.114 350.1.13.10 4.2.7.2.686 [id number] [facility] 2022-04-09 11:00:00 2022-04-09 11:00:[address] [facility] [id number] [facility] 2022-04-08 13:15:00 2022-04-08 23:59:00 Hospital Trace Miles [facility] [place] [facility] 1.2.840.114 350.1.13.10 4.2.7.2.686 [id number] [facility] 2022-04-08 16:00:00 2022-04-08 17:24:31 Ancillary Visit Therapy-Maribel James Brian A [facility] ([facility] 1.2.840.114 350.1.13.10 4.2.7.2.686 [id number] [facility] 2022-04-08 16:00:00 2022-04-08 17:24:[address] [facility] [id number] [facility] 2022-04-08 16:00:00 2022-04-08 17:24:31 Ancillary Visit Therapy-Maribel James Brian [facility] ([facility]) 1.2.840.114 350.1.13.10 4.2.7.2.686 [id number] [facility] 2022-04-08 16:00:00 2022-04-08 17:24:[address] [facility] [id number] [facility] 2022-04-08 16:00:00 2022-04-08 16:00:[address] [facility] [id number] [facility] 2022-04-08 13:30:00 2022-04-08 15:09:[address] [facility] [id number] [facility] 2022-04-08 13:30:00 2022-04-08 15:09:07 Office Visit Trace Zelaya [facility] 1.0.114 350.1.13.10 4.2.7.2.686 [id number] [facility] 2022-04-08 13:30:00 2022-04-08 15:09:[address] [facility] [id number] [facility] 2022-04-08 13:30:00 2022-04-08 13:30:[address] [facility] [id number] [facility] 2022-04-01 10:15:00 2022-04-01 11:15:00 Ancillary Visit Katalina Walker Craig L [facility] 1.0.114 350.1.13.10 4.2.7.2.686 [id number] [facility] 2022-04-01 10:15:00 2022-04-01 10:15:[address] [facility] [id number] [facility] 2022-04-01 00:00:00 2022-04-01 00:00:00 Orders Only Doctor Unassigned, [place] [facility] 1.0.114 350.1.13.10 4.2.7.2.686 [id number] [facility] 2022-03-28 00:00:00 2022-03-28 00:00:00 Patient Secure Msg Doctor Unassigned, [place] [facility] 1.0.114 350.1.13.10 4.2.7.2.686 [id number] [facility] 2022-03-28 00:00:00 2022-03-28 00:00:00 Transition of Care Yaneth Go 1.0.114 350.1.13.10 4.2.7.2.686 [id number] [facility] 2022-03-28 00:00:00 2022-03-28 00:00:00 Telephone Trace Zelaya [facility] 1..840.114 350.1.13.10 4.2.7.2.686 [id number] [facility] 2022-03-25 18:23:00 2022-03-27 18:41:00 Inpatient X KERMIT [facility] [id number] [facility] 2022-03-25 18:23:00 2022-03-27 18:41:00 Hospital Encounter Stacie Hernandez Kermit shannon [facility] 1..840.114 350.1.13.10 4.2.7.2.686 [id number] [facility] 2022-03-25 15:30:00 2022-03-25 15:30:[address] [facility] [id number] [facility] 2022-03-25 05:13:00 2022-03-25 14:16:00 Outpatient TRACE DENNIS [facility] [id number] [facility] 2022-03-25 05:13:00 2022-03-25 14:16:00 Hospital Encounter Trace Zelaya [facility] ([facility]) 1..840.114 350.1.13.10 4.2.7.2.686 [id number] [facility] 2022-03-25 07:00:00 2022-03-25 10:15:00 [facility] 1..840.114 350.1.13.10 4.2.7.2.686 [id number] [facility] 2022-03-25 07:00:00 2022-03-25 07:00:00 Outpatient TRACE DENNIS [facility] [id number] [facility] 2022-03-25 00:00:00 2022-03-25 00:00:00 Orders Only Doctor Unassigned, [place] [facility] 1.2840.114 350.1.13.10 4.2.7.2.686 [id number] [facility] 2022-03-22 13:00:00 2022-03-22 13:15:00 Laboratory Only Only, Adc Test Hong Danial [facility] 1.840.114 350.1.13.10 4.2.7.2.686 [id number] [facility] 2022-03-22 13:00:00 2022-03-22 13:00:00 Outpatient Kinza [facility]ON [facility] [id number] [facility] 2022-03-22 00:00:00 2022-03-22 00:00:00 Orders Only Doctor Unassigned, [place] [facility] 1.0.114 350.1.13.10 4.2.7.2.686 [id number] [facility] 2022-03-21 00:00:00 2022-03-21 00:00:00 Telephone Trace Zelaya [facility] 1.0.114 350.1.13.10 4.2.7.2.686 [id number] [facility] 2022-03-20 14:00:00 2022-03-20 16:08:[address] [facility] [id number] [facility] 2022-03-20 14:00:00 2022-03-20 16:08:38 Ancillary Visit Therapy-Gato James-Phil Lipscomb [facility] ([facility]) 1.0.114 350.1.13.10 4.2.7.2.686 [id number] [facility] 2022-03-20 14:00:00 2022-03-20 16:08:[address] [facility] [id number] [facility] 2022-03-20 14:00:00 2022-03-20 16:08:38 Ancillary Visit Therapy-Nilda hester, Bhavani-Bb-Cassidyu Phil Andersen [facility] ([facility]) 1..840.114 350.1.13.10 4.2.7.2.686 [id number] [facility] 2022-03-20 13:30:00 2022-03-20 14:23:03 Office Visit Trace Zelaya [facility] 1..840.114 350.1.13.10 4.2.7.2.686 [id number] [facility] 2022-03-20 13:30:00 2022-03-20 14:23:[address] [facility] [id number] [facility] 2022-03-20 13:30:00 2022-03-20 14:23:03 Office Visit Trace Zelaya [facility] 1..840.114 350.1.13.10 4.2.7.2.686 [id number] [facility] 2022-03-20 13:30:00 2022-03-20 14:23:[address] [facility] [id number] [facility] 2022-03-20 14:00:00 2022-03-20 14:00:[address] [facility] [id number] [facility] 2022-03-20 13:30:00 2022-03-20 13:30:[address] [facility] [id number] [facility] 2022-03-19 14:58:25 2022-03-19 23:59:00 Hospital Encounter Rafa Diaz [facility] 1..840.114 350.1.13.10 4.2.7.2.686 [id number] [facility] 2022-03-19 15:00:00 2022-03-19 16:03:[address] [facility] [id number] [facility] 2022-03-19 15:00:00 2022-03-19 16:03:44 Office Visit Rafa Diaz [facility] [place] [facility] 1..840.114 350.1.13.10 4.2.7.2.686 [id number] [facility] 2022-03-19 15:00:00 2022-03-19 16:03:[address] [facility] [id number] [facility] 2022-03-19 15:00:00 2022-03-19 16:03:44 Office Visit Rafa Diaz [facility] [place] [facility] 1..840.114 350.1.13.10 4.2.7.2.686 [id number] [facility] 2022-03-19 15:00:00 2022-03-19 15:00:[address] [facility] [id number] [facility] 2022-03-19 14:57:32 2022-03-19 14:57:[address] [facility] [id number] [facility] 2022-03-19 14:52:38 2022-03-19 14:57:00 Hospital Encounter Rafa Diaz [facility] 1..840.114 350.1.13.10 4.2.7.2.686 [id number] [facility] 2021-11-17 11:20:00 2021-11-17 13:57:00 Emergency X LINDA DONISCARRIE [facility] ERT [id number] [facility] 2021-11-17 11:20:00 2021-11-17 13:57:00 Emergency Linda Doniscarrie Sommer [facility] 1..840.114 350.1.13.10 4.2.7.2.686 [id number] [facility] 2021-11-17 00:00:00 2021-11-17 00:00:00 Orders Only Doctor Unassigned, [place] [facility] 1.2.840.114 350.1.13.10 4.2.7.2.686 [id number] [facility] 2017-12-30 23:17:58 2017-12-31 03:03:00 Emergency X TRISHKATELINDA TORIBIOCARRIE [facility] ERT [id number] [facility]
--- NOTE | 2023-12-24 18:32 | RAD REPORT ---
EXAM DESCRIPTION: RAD - Hip Left 2 View - 12/24/2023 6:25 pm CLINICAL HISTORY: PAIN COMPARISON: <Comparisons> FINDINGS: No fracture or dislocation.
--- NOTE | 2023-12-24 18:32 | RAD REPORT ---
EXAM DESCRIPTION: RAD - Pelvis - 12/24/2023 6:25 pm CLINICAL HISTORY: TRAUMA COMPARISON: No comparisons FINDINGS: No fracture, dislocation or radiographic evidence of AVN. IMPRESSION: Negative study.
--- NOTE | 2023-12-24 18:40 | ER ---
Nurse's Notes [facility] Name: Vicky Abbasi Age: 68 yrs Sex: Female : 1955 Arrival Date: 12/24/2023 Time: 17:58 Bed 9 Private MD: Diagnosis: Fall (on) (from) other stairs and steps;Low back pain Presentation: 12/24 18:07 Chief complaint: Patient states: she slipped and fell this morning on the stairs, and ap3 is complaining of pain to her left hip/buttock area. patient reports her pain to be a 3/10 on the pain scale. patient denies hitting her head and states she is not on blood thinners. Coronavirus screen: At this time, the client does not indicate any symptoms associated with coronavirus-19. Ebola Screen: No symptoms or risks identified at this time. Initial Sepsis Screen: Does the patient meet any 2 criteria? No. Patient's initial sepsis screen is negative. Does the patient have a suspected source of infection? No. Patient's initial sepsis screen is negative. Risk Assessment: Do you want to hurt yourself or someone else? Patient reports no desire to harm self or others. Onset of symptoms was December 24, 2023. 18:07 Method Of Arrival: Ambulatory ap3 18:07 Acuity: LAINEY 4 ap3 Triage Assessment: 18:11 General: Appears in no apparent distress. Behavior is calm, cooperative, appropriate ap3 for age. Pain: Complains of pain in left gluteus aly Pain currently is 3 out of 10 on a pain scale. at worst was 8 out of 10 on a pain scale. Pain began suddenly. Neuro: Level of Consciousness is awake, alert, obeys commands, Oriented to person, place, time, situation, Appropriate for age. Cardiovascular: Patient's skin is warm and dry. Respiratory: Airway is patent Respiratory effort is even, unlabored, Respiratory pattern is regular, symmetrical. Historical: - Allergies: 18:11 PENICILLINS; ap3 - PMHx: 18:11 diabetes mellitus; Hypertensive disorder; ap3 - PSHx: 18:11 Total abdominal hysterectomy; ap3 - Immunization history:: Client reports having NOT received the Covid vaccine. Flu vaccine is not up to date. - Social history:: Smoking status: Patient denies any tobacco usage or history of. Screenin:12 [facility] ED Fall Risk Assessment (Adult) History of falling in the last 3 months, ap3 including since admission Yes- single mechanical fall (1 pt) Confusion or Disorientation No (0 pts) Intoxicated or Sedated No (0 pts) Impaired Gait No (0 pts) Mobility Assist Device Used No (0 pt). Abuse screen: Denies threats or abuse. Nutritional screening: No deficits noted. Tuberculosis screening: No symptoms or risk factors identified. Assessment: 18:38 General: Appears uncomfortable, Behavior is calm, cooperative. Pain: Complains of pain tl4 in buttocks and left lower back. Neuro: No deficits noted. Cardiovascular: No deficits noted. Denies chest pain, diaphoresis, lightheadedness, palpitations. Respiratory: No deficits noted. Breath sounds are clear bilaterally. Denies cough, shortness of breath. GI: No deficits noted. No signs and/or symptoms were reported involving the gastrointestinal system. : No deficits noted. No signs and/or symptoms were reported regarding the genitourinary system. EENT: No deficits noted. No signs and/or symptoms were reported regarding the EENT system. Musculoskeletal: Reports pain in back and buttocks. Vital Signs: 18:07 Pulse 69; Resp 16; Temp 97.7; Pulse Ox 100% ; Weight 102.06 kg; Height 5 ft. 5 in. ; ap3 Pain 3/10; 18:39 BP 112 / 49; Pulse 64; Resp 16; Pulse Ox 100% on R/A; Pain 2/10; tl4 19:05 BP 114 / 73; Pulse 62; Resp 18; Pulse Ox 97% on R/A; Pain 8/10; tl4 18:07 Body Mass Index 37.44 (102.06 kg, 165.1 cm) ap3 18:07 Pain Scale: Adult ap3 18:39 Pain Scale: Adult tl4 19:05 Pain Scale: Adult tl4 [place] Coma Score: 18:39 Eye Response: spontaneous(4). Motor Response: obeys commands(6). Verbal Response: tl4 oriented(5). Total: 15. ED Course: 18:01 Patient arrived in ED. mg5 18:04 Yeni Up F[facility]-C is [facility]. kb 18:04 Javier Townsend MD is Attending Physician. kb 18:11 Triage completed. ap3 18:12 Arm band placed on left wrist. ap3 18:26 Pelvis XRAY In Process Unspecified. EDMS 18:26 Hip Left 2 View XRAY In Process Unspecified. EDMS 18:29 Devendra Garza is Primary Nurse. tl4 18:40 Patient has correct armband on for positive identification. Placed in gown. Bed in low tl4 position. Call light in reach. Side rails up X2. Provided Education on: ed process. Client placed on continuous cardiac and pulse oximetry monitoring. NIBP monitoring applied. Door closed. Lights dimmed. Moved to private room. Warm blanket given. 18:40 No provider procedures requiring assistance completed. tl4 19:06 Patient did not have IV access during this emergency room visit. tl4 Administered Medications: No medications were administered Medication: 18:39 VIS not applicable for this client. tl4 Outcome: 18:40 Discharge ordered by MD. kb 19:05 Discharged to home ambulatory, tl4 19:05 Condition: stable 19:05 Discharge instructions given to patient, Instructed on discharge instructions, follow up and referral plans. Demonstrated understanding of instructions, follow-up care, 19:06 Patient left the ED. tl4 Signatures: Dispatcher [employer] EDMS Yeni Up, Bettina Miller RN RN ap3 Zahra Smith mg5 Devendra Garza tl4
--- NOTE | 2023-12-24 18:40 | EDPHYS ---
Physician Documentation [facility] Name: Vicky Abbasi Age: 68 yrs Sex: Female : 1955 Arrival Date: 12/24/2023 Time: 17:58 Bed 9 Private MD: ED Physician Javier Townsend HPI: 12/24 20:57 This 68 yrs old Female presents to ER via Ambulatory with complaints of Low Back Pain. kb 20:57 Patient is a 68-year-old female that slipped and fell causing pain to low back. States kb she does not need any labs done. States she was not dizzy, had chest pain or shortness of breath. States she just slipped and she came in to get x-rays to make sure nothing was fractured. Historical: - Allergies: 18:11 PENICILLINS; ap3 - PMHx: 18:11 diabetes mellitus; Hypertensive disorder; ap3 - PSHx: 18:11 Total abdominal hysterectomy; ap3 - Immunization history:: Client reports having NOT received the Covid vaccine. Flu vaccine is not up to date. - Social history:: Smoking status: Patient denies any tobacco usage or history of. ROS: 18:35 Constitutional: Negative for fever, chills, and weight loss, kb 18:35 MS/extremity: Positive for pain, of the left lower back and left gluteus aly, 18:35 All other systems are negative, Exam: 20:58 Constitutional: This is a well developed, well nourished patient who is awake, alert, kb and in no acute distress. Head/Face: Normocephalic, atraumatic. ENT: Moist Mucous membranes Neck: Trachea midline, no thyromegaly or masses palpated, and no cervical lymphadenopathy. Supple, full range of motion without nuchal rigidity, or vertebral point tenderness. No Meningismus. Cardiovascular: Regular rate Respiratory: Respirations even and unlabored. No increased work of breathing. Talking in full sentences Abdomen/GI: Soft, non-tender. No distention Skin: Warm, dry with normal turgor. Normal color. MS/ Extremity: Pulses equal, no cyanosis. Neurovascular intact. Full, normal range of motion. Neuro: Awake and alert, GCS 15, oriented to person, place, time, and situation. Moves all extremities. Normal gait. 20:58 Back: pain, that is mild, of the left lower back and left gluteus aly, ROM is kb normal, Vital Signs: 18:07 Pulse 69; Resp 16; Temp 97.7; Pulse Ox 100% ; Weight 102.06 kg; Height 5 ft. 5 in. ; ap3 Pain 3/10; 18:39 BP 112 / 49; Pulse 64; Resp 16; Pulse Ox 100% on R/A; Pain 2/10; tl4 19:05 BP 114 / 73; Pulse 62; Resp 18; Pulse Ox 97% on R/A; Pain 8/10; tl4 18:07 Body Mass Index 37.44 (102.06 kg, 165.1 cm) ap3 18:07 Pain Scale: Adult ap3 18:39 Pain Scale: Adult tl4 19:05 Pain Scale: Adult tl4 [place] Coma Score: 18:39 Eye Response: spontaneous(4). Motor Response: obeys commands(6). Verbal Response: tl4 oriented(5). Total: 15. MDM: 18:05 Patient medically screened. kb 20:59 Differential diagnosis: arthritis, strain, fracture, contusion. Data reviewed: vital kb signs, nurses notes. Counseling: I had a detailed discussion with the patient and/or guardian regarding the historical points, exam findings, and any diagnostic results supporting the discharge/admit diagnosis, radiology results, the need for outpatient follow up, a family practitioner, to return to the emergency department if symptoms worsen or persist or if there are any questions or concerns that arise at home. 12/24 18:10 Order name: Pelvis XRAY; Complete Time: 18:33 kb 12/24 18:10 Order name: Hip Left 2 View XRAY; Complete Time: 18:35 kb Administered Medications: No medications were administered Disposition: 12/25 09:02 Co-signature as Attending Physician, Javier Townsend MD I reviewed the patient's care rn provided by the Advanced Practice Provider and agree with the diagnosis and treatment plan. Disposition Summary: 12/24/23 18:40 Discharge Ordered Notes: Location: Home kb Condition: Stable kb Diagnosis - Fall (on) (from) other stairs and steps kb - Low back pain kb Followup: kb - With: Emergency Department - When: As needed - Reason: Worsening of condition Followup: kb - With: Private Physician - When: 2 - 3 days - Reason: Recheck today's complaints, Continuance of care, Re-evaluation by your physician Discharge Instructions: - Discharge Summary Sheet kb - Musculoskeletal Pain kb Forms: - Medication Reconciliation Form kb - Thank You Letter kb - Antibiotic Education kb - Prescription Opioid Use kb - Patient Portal Instructions kb - Leadership Thank You Letter kb Signatures: Dispatcher [employer] EDYeni Botello, MATERIAL PLANNER-C MATERIAL PLANNER-Javier Jaime MD MD rn Prokisch, Amanda, RN RN ap3 Corrections: (The following items were deleted from the chart) 12/24 20:59 20:58 Constitutional: This is a well developed, well nourished patient who is awake, kb alert, and in no acute distress. Head/Face: Normocephalic, atraumatic. kb
[2023-12-24 22:55] VITALS: BP 114/73; TEMP 97.7; O2SAT 97
== END ==
LOC: ER 17:58
DX: M54.50 Low back pain, unspecified (principal); W10.8XXA Fall (on) (from) other stairs and steps, initial encounter
CPT/HCPCS: 72170